=== PATIENT | male | born 1990 | race Hispanic/Latino ===

== ENCOUNTER 2020-10-17 11:17 | Emergency (ER) | payer OTHER, SELFPAY ==
[~2020-10-17] VITALS: Ht 177.8 cm; Wt 83.9 kg
[2020-10-17 11:19] VITALS: BP 125/74
[2020-10-17] MEDS ORDERED: MORPHINE 4 MG SYG IVP ONE (14:30)
[2020-10-17] MEDS ORDERED: 0.9%NACL 1000ML 1,000 ML IV ONE ×2 (14:30→14:57)
[2020-10-17] MEDS ORDERED: ONDANSETRON 4MG INJ IVP ONE (14:30)
[2020-10-17 14:32] LABS: BASOPHILS % (AUTO) 0.3 % (0.0-5.0); EOSINOPHILS % (AUTO) 0.7 % (0.0-8.0); LYMPHOCYTES % (AUTO) 11.7 % (21.0-51.0); MEAN CORPUSCULAR HEMOGLOBIN 28.4 pg (27.0-33.0); MEAN CORPUSCULAR HGB CONC 32.4 g/dL (32.0-36.0); MEAN CORPUSCULAR VOLUME 87.8 fL (79-99); MONOCYTES % (AUTO) 6.6 % (3.0-13.0); NEUTROPHILS % (AUTO) 80.3 % (40.0-77.0); PLATELET COUNT (AUTO) 176 K/uL (130-400); RED BLOOD CELL COUNT(AUTO) 5.24 MIL/uL (4.50-6.20); WHITE BLOOD COUNT (AUTO) 11.8 K/uL (4.8-10.8)
[2020-10-17 14:42] LABS: CARBON DIOXIDE 32 mmol/L (21-32); CHLORIDE 100 mmol/L (101-111); GLOMERULAR FILTR. RATE CALC 93 mL/min (>60); GLUCOSE,RANDOM 126 mg/dL (70-105); POTASSIUM 4.1 mmol/L (3.5-5.1); SODIUM SERUM 138 mmol/L (136-145); UREA NITROGEN, BLOOD 12 mg/dL (7-18)
[2020-10-17 14:46] LABS: ALANINE AMINOTRANSFERASE 22 U/L (12-78); ALBUMIN 4.1 g/dL (3.5-5.0); AMYLASE 28 U/L (25-115); ASPARTATE AMINOTRANSFERASE 12 U/L (10-37); BILIRUBIN,TOTAL 0.7 mg/dL (0.2-1.0); TOTAL PROTEIN, SERUM 8.6 g/dL (6.0-8.3)
[2020-10-17] MEDS ORDERED: ONDANSETRON 4MG INJ ONE (14:58)
[2020-10-17] MEDS ORDERED: MORPHINE 4 MG SYG ONE (14:58)
[2020-10-17 14:59] LABS: LIPASE < 50 U/L (114-286)
[2020-10-17] MEDS ORDERED: IOHEXOL-350 75 ML VIAL IV ONE (15:19)
[2020-10-17] MEDS ORDERED: DICY20TA2 PO (16:52)
[2020-10-17] MEDS ORDERED: ONDA22I PO (16:52)
[2020-10-17 17:26] VITALS: BP 124/74
== END 2020-10-17 17:30 | disposition home or self-care (01) ==
LOC: EDH 11:17
DX: A08.4 Viral intestinal infection, unspecified (principal); Z79.899 Other long term (current) drug therapy
CPT/HCPCS: 36415; 74177; 80053; 82150; 83690; 85025; 96374; 96375; 99285; J2270; J2405; J7030; Q9967